=== PATIENT | male | born 2000 | race Two or more races ===

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

== ENCOUNTER 2018-10-21 16:09 | Emergency (ER) | payer OTHER ==
[~2018-10-21] VITALS: Ht 152.4 cm; Wt 45.5 kg
[2018-10-21 16:40] VITALS: BP 123/80; Ht 152.4 cm; Wt 45.5 kg
[2018-10-21] MEDS ORDERED: ADDERALL XR 1010 M1 PO (16:42)
[2018-10-21] MEDS ORDERED: TRAZODONE HCL300 MG PO (16:42)
[2018-10-21] MEDS ORDERED: CELEXA20 MG PO (16:42)
[2018-10-21] MEDS ORDERED: LAMICTAL100 MG (16:42)
== END 2018-10-21 18:35 | disposition left against medical advice (07) ==
LOC: D.ER 16:09
DX: S01.511A Laceration without foreign body of lip, initial encounter (principal); V89.2XXA Person injured in unspecified motor-vehicle accident, traffic, initial encounter